=== PATIENT | female | born 1940 | race Caucasian/White ===

== ENCOUNTER 2017-08-21 08:00 | Day surgery (SDC) | payer MEDICARE ==
[~2017-08-21] VITALS: Ht 157.5 cm; Wt 67.8 kg
[~2017-08-21 08:00] MED LIST: HYDCHL25; Mobic15 MG; POTA10T
== END 2017-08-21 10:28 | disposition home or self-care (01) ==
LOC: ORSCSDS 08:00
PROVIDERS: Internal Medicine Gastroenterology
PROC: 0DBP8ZX Excision of Rectum, Via Natural or Artificial Opening Endoscopic, Diagnostic (ICD-10-PCS; principal; 2017-08-21 09:15)
PROC: 0DBC8ZX Excision of Ileocecal Valve, Via Natural or Artificial Opening Endoscopic, Diagnostic (ICD-10-PCS; principal; 2017-08-21 09:15)
PROC: 0DBM8ZX Excision of Descending Colon, Via Natural or Artificial Opening Endoscopic, Diagnostic (ICD-10-PCS; principal; 2017-08-21 09:15)
PROC: 0DBN8ZX Excision of Sigmoid Colon, Via Natural or Artificial Opening Endoscopic, Diagnostic (ICD-10-PCS; principal; 2017-08-21 09:15)
DX: Z12.11 Encounter for screening for malignant neoplasm of colon (principal); D12.0 Benign neoplasm of cecum; D12.4 Benign neoplasm of descending colon; K63.5 Polyp of colon; K62.1 Rectal polyp; K64.8 Other hemorrhoids; Z86.010 Personal history of colon polyps; G47.33 Obstructive sleep apnea (adult) (pediatric); Z87.891 Personal history of nicotine dependence
CPT/HCPCS: 88305; J2405; J7120

== ENCOUNTER 2020-03-09 07:29 | Day surgery (SDC) | payer MEDICARE ==
[~2020-03-09] VITALS: Ht 154.9 cm; Wt 64.0 kg
[~2020-03-09 07:29] MED LIST changes: +CALCIUM PO; -HYDCHL25; +HYDCHL25 PO; +MAGCHL64ER PO; +MELO7.5 PO; -POTA10T; +POTA10T PO; +PROBIOTIC250 MG PO
--- NOTE | 2020-03-09 19:28 | NUR ---
SHIFT SUMMARY PT BECAME CONFUSED AFTER 0.25MG DOSE OF DILAUDID BUT HAS SLOWLY CLEARED. EMESIS POST DINNER. ZOFRAN GIVEN. WORKED WITH THERAPY. VOIDING.
[2020-03-10 04:07] LABS: BASOPHILS PERCENT AUTO 0 % (0-2); EOSINOPHILS PERCENT AUTO 0 % (0-6); Hematocrit 34.3 % (33.0-51.0); Hemoglobin 11.4 g/dL (11.5-16.0); IMMATURE GRAN ABSOLUTE AUTO 0.03 K/mm3 (0.00-0.10); IMMATURE GRAN PERCENT AUTO 0 % (0-1); LYMPHOCYTES ABSOLUTE AUTO 0.64 K/mm3 (0.84-5.20); LYMPHOCYTES PERCENT AUTO 6 % (21-46); MONOCYTES PERCENT AUTO 6 % (4-13); Mean Corpuscular HGB 29.3 pg (26.0-34.0); Mean Corpuscular HGB Conc 33.2 g/dL (31.5-36.5); Mean Corpuscular Volume 88 fL (80-100); NEUTROPHILS ABSOLUTE AUTO 8.84 K/mm3 (1.96-9.15); NEUTROPHILS PERCENT AUTO 88 % (41-73); Platelet Count 173 K/mm3 (150-400); RDW Coefficient Variation 12.8 % (11.7-14.2); RDW Standard Deviation 41.4 fL (35.1-46.3); Red Blood Cell Count 3.89 M/mm3 (3.80-5.20); White Blood Cell Count 10.11 K/mm3 (4.00-11.30)
[2020-03-10 04:25] LABS: Anion Gap 6 mmol/L (6-16); Blood Urea Nitrogen 14 mg/dL (8-24); Bun/Creatinine Ratio 19.3 (12.0-20.0); CO2, Blood 31 mmol/L (21-32); Calcium, Blood 8.3 mg/dL (8.5-10.1); Chloride, Blood 103 mmol/L (98-108); Creatinine, Blood 0.73 mg/dL (0.40-1.00); Glomerular Filtration Rate >60 (60-); Glucose, Blood 145 mg/dL (70-99); Sodium, Blood 140 mmol/L (136-145)
--- NOTE | 2020-03-10 04:57 | NUR ---
SHIFT SUMMARY POD 1 RIGHT CEM, AQUACEL TO RIGHT AND LEFT HIP CDI. POLAR PACK TO RIGHT HIP IN PLACE. PAIN MANAGED WITH TYLENOL AND TORADOL. ABX INFUSED PER ORDERS. ROBERT PO INTAKE. AMBULATING TO BATHROOM AND IN HALLWAYS WITH FWW/GB/SBA. APPEARS TO HAVE SLEPT T/O MOST OF SHIFT. PT IS CURRENTLY RESTING IN BED WITH EYES CLOSED AND CALL LIGHT IN REACH. PLAN TO WORK WITH THERAPY TOMORROW AND POSSIBLE DISCHARGE. WILL CONT TO MONITOR AND GIVE REPORT TO ONCOMING RN.
[2020-03-10] MEDS ORDERED: Percocet 5-3251 EACH PO (09:45)
[2020-03-10] MEDS ORDERED: Aspir 8181 MG PO (09:46)
--- NOTE | 2020-03-10 11:02 | NUR ---
Upon receiving an admit referral for spiritual care, I visit patient. Patient is sitting on a chair and alert. Patient's spouse, Roger, is present. Patient tells me about her hip surgery, her chidi and Roger's ontiveros with cancer. Patient asks for prayer, which I gladly supply. I listen empathically and encourage self-care.
--- NOTE | 2020-03-10 12:18 | NUR ---
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 DC INS PROVIDED. PT REP UNDERSTANDING THOSE INSTRUCTIONS. IV DC'D.
--- NOTE | 2020-03-11 12:30 | NUR ---
03/11/20 1230 Suzie Chapa VERIFICATIONS: EDIT CHART.
== END 2020-03-10 12:15 | disposition home or self-care (01) ==
LOC: ORSCMMR 07:29 → ORD 08:15 → ORSCMMR 09:00 → ORD 09:00 → SURS 12:50 → ORSCMMR 03-10 12:15 → SURS 03-10 12:15
PROVIDERS: Orthopaedic Surgery
PROC: 8E0X0CZ Robotic Assisted Procedure of Upper Extremity, Open Approach (ICD-10-PCS; principal; 2020-03-09 09:00)
PROC: 0SR90JZ Replacement of Right Hip Joint with Synthetic Substitute, Open Approach (ICD-10-PCS; principal; 2020-03-09 09:00)
DX: M16.11 Unilateral primary osteoarthritis, right hip (principal); I10 Essential (primary) hypertension; Z79.899 Other long term (current) drug therapy
CPT/HCPCS: 27130; S2900; 36415; 72170; 80048; 85025; 88300; 97110; 97116; 97162; A9270-GY; C1776; J0171; J0690; J0735; J1100; J1170; J1885; J2250; J2405; J2704; J2795; J3010; J7120

== ENCOUNTER → 2020-03-31 | Outpatient (CLI) | payer MEDICARE ==
[~2020-03-31] MED LIST changes: +Aspir 8181 MG PO; +Percocet 5-3251 EACH PO
[2020-03-31 13:01] LABS: Automated BF RBC Count 0.014 M/mm3 (0-0); Automated BF WBC Count 0.742 K/mm3 (0-999); Body Fluid WBC Count 742 /mm3 (0-999); RBC Count, Body Fluid 14000 /mm3 (0-0)
[2020-03-31 13:41] LABS: Total Cell Count, Body Fluid 100
[2020-03-31 13:42] LABS: Appearance, Body Fluid Hazy (Clear); Color, Body Fluid L Yellow (None-Yellow)
== END | disposition home or self-care (01) ==
LOC: LAB 12:00 → LAB SHORT 12:00
PROVIDERS: Orthopaedic Surgery
DX: L03.115 Cellulitis of right lower limb (principal); Z96.641 Presence of right artificial hip joint
CPT/HCPCS: 87070; 87075; 87205; 89051

== ENCOUNTER 2020-08-06 11:50 | Emergency (ER) | payer MEDICARE ==
[~2020-08-06] VITALS: Ht 154.9 cm; Wt 63.5 kg
[2020-08-06 12:30] LABS: BASOPHILS ABSOLUTE AUTO 0.03 K/mm3 (0.00-0.23); BASOPHILS PERCENT AUTO 1 % (0-2); EOSINOPHILS ABSOLUTE AUTO 0.08 K/mm3 (0.00-0.68); EOSINOPHILS PERCENT AUTO 1 % (0-6); Hematocrit 44.1 % (33.0-51.0); Hemoglobin 14.5 g/dL (11.5-16.0); IMMATURE GRAN ABSOLUTE AUTO 0.02 K/mm3 (0.00-0.10); IMMATURE GRAN PERCENT AUTO 0 % (0-1); LYMPHOCYTES ABSOLUTE AUTO 1.31 K/mm3 (0.84-5.20); LYMPHOCYTES PERCENT AUTO 22 % (21-46); MONOCYTES ABSOLUTE AUTO 0.35 K/mm3 (0.16-1.47); MONOCYTES PERCENT AUTO 6 % (4-13); Mean Corpuscular HGB Conc 32.9 g/dL (31.5-36.5); Mean Corpuscular Volume 85 fL (80-100); NEUTROPHILS ABSOLUTE AUTO 4.22 K/mm3 (1.96-9.15); NEUTROPHILS PERCENT AUTO 70 % (41-73); Platelet Count 198 K/mm3 (150-400); RDW Coefficient Variation 14.9 % (11.7-14.2); RDW Standard Deviation 45.8 fL (35.1-46.3); Red Blood Cell Count 5.18 M/mm3 (3.80-5.20); White Blood Cell Count 6.01 K/mm3 (4.00-11.30)
[2020-08-06 13:04] LABS: Source, Urine Clean Catch
[2020-08-06 13:08] LABS: Appearance, Urine Clear (Clear); Bilirubin, Urine Neg (Neg); Blood, Urine 1+ (Neg); Color, Urine Yellow (P-Yellow); Glucose Qualitative, Urine Neg (Neg); Ketones, Urine Neg (Neg); Leukocyte Esterase, Urine Neg (Neg); Nitrite, Urine Neg (Neg); Protein, Urine Neg (Neg); Specific Gravity, Urine 1.005 (1.003-1.022); Urobilinogen, Urine NORM (Normal)
[2020-08-06 13:13] LABS: Alanine Aminotransfer (ALT/SGP 21 U/L (12-78); Albumin, Blood 4.2 g/dL (3.4-5.0); Albumin/Globulin Ratio 1.2 (0.8-1.8); Alk Phos 95 U/L (50-136); Anion Gap 7 mmol/L (6-16); Aspartate Aminotrans (AST/SGOT 15 U/L (12-37); Bilirubin, Total 0.8 mg/dL (0.1-1.0); Blood Urea Nitrogen 18 mg/dL (8-24); Bun/Creatinine Ratio 25.6 (12.0-20.0); CO2, Blood 27 mmol/L (21-32); Calcium, Blood 9.8 mg/dL (8.5-10.1); Chloride, Blood 105 mmol/L (98-108); Globulin, Blood 3.4 g/dL (2.2-4.0); Glomerular Filtration Rate >60 (60-); Glucose, Blood 115 mg/dL (70-99); Potassium, Blood 3.8 mmol/L (3.5-5.5); Sodium, Blood 139 mmol/L (136-145); Total Protein, Blood 7.6 g/dL (6.4-8.2)
[2020-08-06 13:30] LABS: Red Blood Cells, Urine 0-2 /hpf (0-2); Squamous Epithelial Cells Rare /hpf (Few); White Blood Cells, Urine 0-2 /hpf (0-5)
[2020-08-06 13:31] LABS: Bacteria Rare /hpf
[2020-08-06] MEDS ORDERED: UNKNOWN BP MED (14:06)
[2021-01-04] MEDS ORDERED: ACET500 PO (13:25)
[2021-01-04] MEDS ORDERED: HYDCHL25 PO (13:25)
[2021-01-04] MEDS ORDERED: VITAMIN D325 MC3 PO (13:25)
[2021-01-04] MEDS ORDERED: ESCI10 PO (13:25)
[2021-01-04] MEDS ORDERED: TUMS500 MG PO (13:25)
[2021-01-04] MEDS ORDERED: Citroma296 ML PO (13:26)
[2021-01-04] MEDS ORDERED: POTA10T PO (13:26)
[2021-01-04] MEDS ORDERED: PROBIOTIC1 EA13 PO (13:26)
[2021-01-04] MEDS ORDERED: LORA.5 PO (13:26)
== END 2020-08-06 15:56 | disposition home or self-care (01) ==
LOC: ER 11:50
PROVIDERS: Emergency Medicine
DX: R42 Dizziness and giddiness (principal); I10 Essential (primary) hypertension; Z87.891 Personal history of nicotine dependence; Z79.899 Other long term (current) drug therapy; Z88.0 Allergy status to penicillin; Z88.5 Allergy status to narcotic agent
CPT/HCPCS: 36415; 80053; 81001; 84484; 85025; 93005; 93010; 99285-25

== ENCOUNTER 2021-01-12 07:13 | Day surgery (SDC) | payer MEDICARE ==
[~2021-01-12] VITALS: Ht 154.9 cm; Wt 61.4 kg
[~2021-01-12 07:13] MED LIST changes: +ACET500 PO; +Citroma296 ML PO; +ESCI10 PO; +LORA.5 PO; +PROBIOTIC1 EA13 PO; +TUMS500 MG PO; +UNKNOWN BP MED; +VITAMIN D325 MC3 PO
== END 2021-01-12 09:21 | disposition home or self-care (01) ==
LOC: ORSCSDS 07:13
PROVIDERS: Internal Medicine Gastroenterology
PROC: 0DBP8ZX Excision of Rectum, Via Natural or Artificial Opening Endoscopic, Diagnostic (ICD-10-PCS; principal; 2021-01-12 08:30)
PROC: 0DBK8ZX Excision of Ascending Colon, Via Natural or Artificial Opening Endoscopic, Diagnostic (ICD-10-PCS; principal; 2021-01-12 08:30)
DX: Z12.11 Encounter for screening for malignant neoplasm of colon (principal); Z86.010 Personal history of colon polyps; D12.2 Benign neoplasm of ascending colon; K62.1 Rectal polyp; K64.4 Residual hemorrhoidal skin tags; K64.8 Other hemorrhoids; F41.8 Other specified anxiety disorders; I10 Essential (primary) hypertension; Z87.891 Personal history of nicotine dependence; K57.30 Diverticulosis of large intestine without perforation or abscess without bleeding; Z79.899 Other long term (current) drug therapy
CPT/HCPCS: 88305; J2704; J7120

== ENCOUNTER → 2022-07-27 | Outpatient (CLI) | payer MEDICARE | END | disposition home or self-care (01) | LOC: LAB SHORT 14:54 | DX: N39.0 Urinary tract infection, site not specified (principal) | CPT/HCPCS: 87077; 87086; 87186 ==

== ENCOUNTER → 2023-02-08 | Outpatient (CLI) | payer OTHER ==
[2023-02-08 14:46] LABS: BASOPHILS ABSOLUTE AUTO 0.03 K/mm3 (0.00-0.23); BASOPHILS PERCENT AUTO 1 % (0-2); EOSINOPHILS ABSOLUTE AUTO 0.12 K/mm3 (0.00-0.68); EOSINOPHILS PERCENT AUTO 3 % (0-6); Hematocrit 43.6 % (33.0-51.0); Hemoglobin 14.4 g/dL (11.5-16.0); IMMATURE GRAN ABSOLUTE AUTO 0.01 K/mm3 (0.00-0.10); IMMATURE GRAN PERCENT AUTO 0 % (0-1); LYMPHOCYTES ABSOLUTE AUTO 1.37 K/mm3 (0.84-5.20); LYMPHOCYTES PERCENT AUTO 29 % (21-46); MONOCYTES ABSOLUTE AUTO 0.34 K/mm3 (0.16-1.47); MONOCYTES PERCENT AUTO 7 % (4-13); Mean Corpuscular HGB 29.4 pg (26.0-34.0); Mean Corpuscular Volume 89 fL (80-100); Mean Platelet Volume 8.6 fL (9.1-12.4); NEUTROPHILS ABSOLUTE AUTO 2.87 K/mm3 (1.96-9.15); NEUTROPHILS PERCENT AUTO 61 % (41-73); Platelet Count 226 K/mm3 (150-400); RDW Coefficient Variation 13.1 % (11.7-14.2); RDW Standard Deviation 42.8 fL (35.1-46.3); White Blood Cell Count 4.74 K/mm3 (4.00-11.30)
[2023-02-08 14:51] LABS: Alanine Aminotransfer (ALT/SGP 29 U/L (12-78); Albumin/Globulin Ratio 1.3 (0.8-1.8); Alk Phos 76 U/L (50-136); Anion Gap 5 mmol/L (6-16); Aspartate Aminotrans (AST/SGOT 25 U/L (12-37); Bilirubin, Total 0.8 mg/dL (0.1-1.0); Blood Urea Nitrogen 13 mg/dL (8-24); Bun/Creatinine Ratio 15.2 (12.0-20.0); CHOL/HDL RATIO 2.2; CO2, Blood 28 mmol/L (21-32); Calcium, Blood 9.4 mg/dL (8.5-10.1); Chloride, Blood 107 mmol/L (98-108); Cholesterol 194 mg/dL (50-200); Creatinine, Blood 0.86 mg/dL (0.40-1.00); Globulin, Blood 3.1 g/dL (2.2-4.0); Glomerular Filtration Rate 68 (60-); Glucose, Blood 105 mg/dL (70-99); HDL Cholesterol 89 mg/dL (>39); Low Density Lipoprotein Chol 89 mg/dL (0-110); Potassium, Blood 3.8 mmol/L (3.5-5.5); Sodium, Blood 140 mmol/L (136-145); Total Protein, Blood 7.1 g/dL (6.4-8.2); Triglycerides 79 mg/dL (30-160); Very Low Density Lipoprot Chol 15 mg/dL (6-32)
== END | disposition home or self-care (01) ==
LOC: LAB 12:54 → LAB SHORT 12:54
PROVIDERS: Family Medicine
DX: I10 Essential (primary) hypertension (principal); E78.5 Hyperlipidemia, unspecified; R73.9 Hyperglycemia, unspecified
CPT/HCPCS: 80053; 80061; 83036; 85025

== ENCOUNTER 2023-02-20 07:50 | Day surgery (SDC) | payer OTHER ==
[~2023-02-20] VITALS: Ht 157.5 cm; Wt 62.9 kg
--- NOTE | 2023-02-20 08:24 | NUR ---
02/20/23 0824 Shara Rider CALL LIGHT WITHIN REACH. TETRACAINE IN RIGHT EYE AT 0815 AND PLEDGETT IN AT 0816
[2023-02-20 09:26] VITALS: BP 123/61
== END 2023-02-20 09:45 | disposition home or self-care (01) ==
LOC: ORSCSDS 07:50
PROVIDERS: Student in an Organized Health Care Education/Training Program
PROC: 08RJ3JZ Replacement of Right Lens with Synthetic Substitute, Percutaneous Approach (ICD-10-PCS; principal; 2023-02-20 09:00)
DX: H25.13 Age-related nuclear cataract, bilateral (principal); H11.441 Conjunctival cysts, right eye; M19.90 Unspecified osteoarthritis, unspecified site; F41.9 Anxiety disorder, unspecified; I10 Essential (primary) hypertension; F32.A Depression, unspecified; Z87.891 Personal history of nicotine dependence; Z79.899 Other long term (current) drug therapy
CPT/HCPCS: J2250; J3010; J7040; V2632

== ENCOUNTER 2023-03-06 07:50 | Day surgery (SDC) | payer OTHER ==
[~2023-03-06] VITALS: Ht 157.5 cm; Wt 62.9 kg
--- NOTE | 2023-03-06 08:10 | NUR ---
03/06/23 0810 Zeina Mcclendon CALL LIGHT WITHIN REACH. TETRACAINE IN LEFT EYE AT 0804 AND PLEDGETT IN AT 0806
[2023-03-06 09:12] VITALS: BP 132/61
== END 2023-03-06 09:31 | disposition home or self-care (01) ==
LOC: ORSCSDS 07:50
PROVIDERS: Student in an Organized Health Care Education/Training Program
PROC: 08RK3JZ Replacement of Left Lens with Synthetic Substitute, Percutaneous Approach (ICD-10-PCS; principal; 2023-03-06 09:00)
DX: H25.12 Age-related nuclear cataract, left eye (principal); Z96.1 Presence of intraocular lens; I10 Essential (primary) hypertension; K21.9 Gastro-esophageal reflux disease without esophagitis; F32.A Depression, unspecified; F41.9 Anxiety disorder, unspecified; M19.90 Unspecified osteoarthritis, unspecified site; Z87.891 Personal history of nicotine dependence; Z79.899 Other long term (current) drug therapy
CPT/HCPCS: J2250; J3010; J7040; V2632